=== PATIENT | male | born 2000 | race Caucasian/White ===

== ENCOUNTER 2020-04-11 09:09 | Emergency (ER) | payer OTHER ==
[2020-04-11] MEDS ORDERED: cefTRIAXone 1 GM, Lidocaine 1% 2.1 ML IM ONE ×2 (09:27)
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
== END 2020-04-11 09:48 | disposition home or self-care (01) ==
LOC: VM.ED 09:09
DX: T25.212A Burn of second degree of left ankle, initial encounter (principal); L03.116 Cellulitis of left lower limb; X58.XXXA Exposure to other specified factors, initial encounter
CPT/HCPCS: 99283; J0696; J2001